=== PATIENT | male | born 1935 ===

== ENCOUNTER 2018-12-02 08:54 | Outpatient (CLI) | payer OTHER ==
[~2018-12-02] VITALS: Ht 172.7 cm; Wt 75.3 kg
[~2018-12-02 08:54] MED LIST: COZAAR50 MG; LIPITOR20 MG; VISTARIL50 MG
== END 2018-12-02 09:15 | disposition home or self-care (01) ==
LOC: OFIC 805 08:54
DX: H61.23 Impacted cerumen, bilateral (principal); H90.3 Sensorineural hearing loss, bilateral

== ENCOUNTER → 2020-09-12 | Outpatient (CLI) | payer OTHER | END | disposition home or self-care (01) | LOC: OFIC 805 10:00 | PROVIDERS: ATTEND Otolaryngology | DX: J34.89 Other specified disorders of nose and nasal sinuses (principal); J30.89 Other allergic rhinitis; H90.3 Sensorineural hearing loss, bilateral; H61.23 Impacted cerumen, bilateral ==

== ENCOUNTER 2021-11-24 12:08 | Outpatient (CLI) | payer OTHER | END 2021-11-24 12:19 | disposition home or self-care (01) | LOC: SONOGRAMA 12:08 | DX: M83.1 Senile osteomalacia (principal); I12.9 Hypertensive chronic kidney disease with stage 1 through stage 4 chronic kidney disease, or unspecified chronic kidney disease ==